=== PATIENT | male | born 1955 | race Caucasian/White ===

== ENCOUNTER 2021-08-09 07:10 | Outpatient (CLI) | payer SELFPAY ==
--- NOTE | ~2021-08-09 | CT_ITS ---
EXAMINATION: CTA brain carotid DATE: 08/09/2021 08:09 INDICATION: Syncope. TECHNIQUE: Computed tomographic angiography (CTA) of the head was performed without and with 100 mL O mnipaque-350 intravenous contrast. CTA of the neck was performed with intravenous contrast. Automated exposure control and iterative reconstruction technique were employed. The dose-length product was 1 872.53 mGy-cm. Maximum intensity projection and volume rendered 3D-reconstructions were created by macrina thompson technologist on a separate workstation. COMPARISON: None. FINDINGS: HEAD CTA: There is no intracranial hemorrhage, acute infarction, or abnormal intracranial mass lesion . The ventricles are normal in size. There is mucosal thickening in the paranasal sinuses. The mastoi d air cells are normal. There are no pathologically enlarged lymph nodes. Right vertebral artery is d ominant. There is no significant stenosis of basilar artery or the posterior cerebral arteries. There is no significant stenosis of the intracranial internal carotid arteries or anterior or middle cereb ral arteries. Anterior communicating artery is normal. The posterior communicating arteries are kelsie l. There is no aneurysm. NECK CTA: There is mild scarring at the lung apices. There is no significant stenosis of the vertebra l arteries. There is mild plaque in the proximal internal carotid arteries. There is 0% stenosis of t he proximal right internal carotid artery relative to normal distal artery lumen diameter (NASCET cri teria). There is 0% stenosis of the proximal left internal carotid artery relative to normal distal a rtery lumen diameter. There is severe cervical spondylosis. IMPRESSION: 1. Normal brain. No aneurysm or significant intracranial arterial stenosis. 2. 0% stenosis of the proximal internal carotid arteries relative to normal distal artery lumen diame ters (NASCET criteria). Reviewed, dictated and finalized at location A. [employer] IMPRESSION: 1. Normal brain. No aneurysm or significant intracranial arterial stenosis. 2. 0% stenosis of the proximal internal carotid arteries relative to normal dis radha artery lumen diameters (NASCET criteria).
[2021-08-09 07:43] LABS: Estimated Glomerular Filt Rate > 60
== END 2021-08-09 07:11 | disposition home or self-care (01) ==
LOC: ANHIMG 07:16
PROVIDERS: PCP Family Medicine
DX: R55 Syncope and collapse (principal)
CPT/HCPCS: 70496; 70498; Q9967

== ENCOUNTER 2021-08-14 13:20 | Outpatient (CLI) | payer SELFPAY ==
--- NOTE | 2021-08-14 | ECHO_ITS ---
Patient Info Name: Pako Julien Age: 66 years : 1955 Gender: Male Ht: 73 in Wt: 170 lbs BSA: 1.99 m2 HR: 84 bpm BP: 144 / 91 mmHg Heart Rhythm: Sinus Rhythm Exam Date: 08/14/2021 2:05 PM Exam Location: [facility] Patient Status: Outpatient Admit Date: 08/14/2021 Staff Ordering Physician: JACIEL OCHOA Fishing Vessel Operator: Nahid Linder, FRANK[place], RT Attending Provider: JACIEL OCHOA Exam Type: CA echo doppler color flow Study Info Indications R55 - Syncope and collapse Complete two-dimensional, color flow and Doppler transthoracic echocardiogram is performed. Strain analysis performed. Summary 1. Complete two-dimensional, color flow and Doppler transthoracic echocardiogram is performed. 2. Left ventricular chamber dimension is normal. 3. Left ventricular systolic function is normal, estimated at 65-70%. 4. There is no increased left ventricular wall thickness. 5. The left ventricular diastolic function is grade I diastolic dysfunction. 6. There is trace tricuspid valve regurgitation. 7. Unable to estimate PA systolic pressure due to poor spectral resolution of tricuspid regurgitant jet velocity. Left Ventricle Left ventricular chamber dimension is normal. Left ventricular systolic function is normal, estimated at 65-70%. There is no increased left ventricular wall thickness. The left ventricular diastolic function is grade I diastolic dysfunction. Global longitudinal strain is normal at -18 %. Right Ventricle Right ventricular chamber dimension is normal. Right ventricular systolic function is normal. Left Atria Left atrial chamber dimension is normal. Right Atria Right atrial chamber dimension is normal. Aortic Valve The aortic valve is not well visualized. There is no aortic valve stenosis. There is no aortic valve regurgitation. Pulmonic Valve The pulmonic valve is not well visualized. Mitral Valve The mitral valve has normal leaflets. There is no mitral valve regurgitation. The mitral valve annulus is mildly calcified. Tricuspid Valve The tricuspid valve leaflets are normal. There is trace tricuspid valve regurgitation. Unable to estimate PA systolic pressure due to poor spectral resolution of tricuspid regurgitant jet velocity. Pericardium/Pleural The pericardium appears normal. There is no pericardial effusion. Inferior Vena Cava Normal inferior vena cava with >50% collapse upon inspiration consistent with normal right atrial pressure, 5 mmHg. Aorta The aortic root size at the sinus of Valsalva is normal. Left Ventricular Outflow Tract Name Value Normal LVOT 2D LVOT Diameter 2.0 cm LVOT Doppler LVOT Peak Gradient 3 mmHg LVOT Mean Gradient 1 mmHg LVOT VTI 19 cm LVOT VTI/AV VTI Ratio 0.8 LVOT Stroke Volume 59 ml LVOT CO 5.1 l/min LVOT CI 2.6 l/min/m2 Mitral Valve
== END 2021-08-14 13:21 | disposition home or self-care (01) ==
DX: R55 Syncope and collapse (principal)
CPT/HCPCS: 93306